=== PATIENT | male | born 1970 | race Caucasian/White ===

== ENCOUNTER → 2024-03-18 10:29 | Outpatient (CLI) | payer BC, SELFPAY ==
--- NOTE | 2024-03-18 10:32 | DI.ECHO.S_ITS ---
[facility] : : [address] : : [place] : : [id number] : : Phone: [phone] Echocardiogram Report + + :Name: SAL GALINDO Study Date: 03/18/2024 Height: 68 in : :Hospital ReadingLocation: Weight: 180 lb : : Gender: Male BSA: 2.0 m2 : :: 1970 Age: 54 yrs BP: 138/103 mmHg: :Reason For Study: PRIMARY HYPERTENSION : :Ordering Physician: SHERI, : :DOUGIE Performed By: Orlando Jacobo : :Referring: DOUGIE ALONSO : + + Interpretation Summary 1) Normal left ventricular thickness and size with mildly reduced systolic function (EF 45-50%). 2) Mildly enlarged right ventricle with normal function. 3) No significant valvular abnormalities. 4) No prior Echo available for comparison. Procedure: A two-dimensional transthoracic echocardiogram with color flow and Doppler was performed. The study quality was technically good. There is no prior echocardiogram noted for this patient. The patient was in normal sinus rhythm during the exam. Left Ventricle: The left ventricle is normal in size. There is normal left ventricular wall thickness. There is no ventricular septal defect visualized. The ejection fraction is estimated to be 45-50%. There is mild global hypokinesis of the left ventricle. There are no focal wall motion abnormalities. Diastolic parameters suggest probable normal left ventricular diastolic function and normal filling pressures. Right Ventricle: The right ventricle is mildly dilated. The right ventricular systolic function is normal. Atria: The left atrial size is normal. Right atrial size is normal. There is no Doppler evidence for an atrial septal defect. Mitral Valve: The mitral valve is normal in structure and function. There is trace mitral regurgitation. Aortic Valve: The aortic valve is trileaflet. The aortic valve opens well. There is no aortic valve stenosis. No aortic regurgitation is present. Tricuspid Valve: The tricuspid valve leaflets are thin and pliable. There is trace tricuspid regurgitation. Pulmonary artery pressures cannot be estimated because of the lack of a measurable TR jet velocity. Pulmonic Valve: The pulmonic valve is normal in structure and function. There is a trace or physiologic amount of pulmonic regurgitation. Great Vessels: The aortic root is normal size. The dimensions of the ascending aorta are normal. The pulmonary artery is normal size. The IVC is of normal diameter and collapses greater than 50% with a sniff. This suggests a low right atrial pressure of 3 mm Hg. Pericardium/ Pleura There is no pericardial effusion. There is no pleural effusion. MMode/2D Measurements & Calculations LVIDd: 4.8 cm LVOT diam: 2.4 cm LVIDs: 3.7 cm Ao root diam: 3.6 cm FS: 22.8 % asc Aorta Diam: 3.5 cm EPSS: 0.47 cm IVSd: 1.0 cm LVPWd: 0.61 cm LV arriola. diameter/BSA (cm/m^2): 2.5 LV sys. diameter/BSA (cm/m^2): 1.9 LA A2 area: 18.8 cm2 RA long axis: 4.5 cm LA A4 area: 14.4 cm2 RA area: 14.3 cm2 LA length (vol): 4.7 cm RA vol: 38.4 ml LA vol: 48.9 ml RA : 19.7 ml/m2 LA vol index: 25.0 ml/m2 IVC diam: 1.2 cm RVD1 (basal): 3.9 cm RVD2 (mid): 2.5 cm TAPSE: 1.7 cm Doppler Measurements & Calculations Ao V2 max: 93.4 cm/sec LVOT Max Wali: 78.2 cm/sec Ao V2 mean: 66.7 cm/sec LV V1 max P.4 mmHg Ao max P.5 mmHg LV V1 VTI: 17.9 cm Ao mean P.9 mmHg SHEELA(I,D): 3.9 cm2 Ao V2 VTI: 20.3 cm SHEELA(V,D): 3.7 cm2 sev ratio: 0.88 SHEELA indexed to BSA (cm^2/m^2): 2.0 MV E max wali: 64.2 cm/sec TR max wali: 206.2 cm/sec MV A max wali: 57.8 cm/sec TR max P.0 mmHg MV E/A: 1.1 PA V2 max: 58.3 cm/sec Med Peak E' Wlai: 8.6 cm/sec PA V2 mean: 39.6 cm/sec E/E' med: 7.4 PA mean P.72 mmHg Lat Peak E' Wali: 8.9 cm/sec PA pr(Accel): 10.5 mmHg E/E' lat: 7.3 E/e' average: 7.3 MV dec time: 0.19 sec SV(LVOT): 78.8 ml Reading Physician:03:10 PM
== END ==
PROVIDERS: Referring Provider Internal Medicine Cardiovascular Disease; Visit Provider Internal Medicine Cardiovascular Disease
DX: I10 Essential (primary) hypertension (principal); R79.89 Other specified abnormal findings of blood chemistry
CPT/HCPCS: 93306